=== PATIENT | female | born 1960 | race Caucasian/White ===

== ENCOUNTER 2020-01-07 12:00 | Outpatient (CLI) | payer OTHER, SELFPAY ==
--- NOTE | 2020-01-07 12:08 | ECG_ITS ---
Measurements Intervals [place] Rate: 74 P: 77 OK: 127 QRS: 84 QRSD: 79 T: 93 QT: 369 QTc: 410 Interpretive Statements SINUS RHYTHM POSSIBLE LEFT ATRIAL ENLARGEMENT BASELINE ARTIFACT- I, II, III, AVR, AVL, AVF, V1-V6 BORDERLINE ECG Electronically Signed On 01-07-2020 14:10:43 CDT by Reinier Schofield D.O.
[2020-01-07 12:19] LABS: Basophils Absolute Auto 0.04 K/mm3 (0.00-0.10); Basophils Percent Auto 0.4 % (0.0-1.0); Eosinophils Absolute Auto 0.09 K/mm3 (0.02-0.50); Hematocrit 47.6 % (35.0-49.0); Hemoglobin 16.7 g/dL (12.0-15.0); Immature Granulocyte Absolute 0.04 K/mm3 (0.00-0.00); Immature Granulocyte Percent A 0.4 % (0.0-0.0); Lymphocytes Percent Auto 28.6 % (18.0-42.0); Mean Corpuscular HGB Conc 35.1 g/dL (32.0-36.0); Mean Corpuscular Hemoglobin 33.6 pg (27.0-31.0); Mean Corpuscular Volume 95.8 fL (78.0-102.0); Mean Platelet Volume 9.2 fl (9.2-11.8); Monocytes Absolute Auto 0.47 K/mm3 (0.10-0.90); Neutrophils Absolute Auto 6.1 K/mm3 (1.7-7.2); Neutrophils Percent Auto 64.6 % (50.0-70.0); Platelet Count Result 238 K/mm3 (150-420); Red Blood Count 4.97 M/mm3 (4.20-5.40); Red Cell Distribution Width 12.8 % (11.6-14.4); White Blood Count 9.4 K/mm3 (4.8-10.8)
[2020-01-07 12:53] LABS: Creatinine Urine 83.64 mg/dL (40-278)
[2020-01-07 12:55] LABS: Microalbumin Urine Random 26.8 mg/L
[2020-01-07 12:56] LABS: Hemoglobin A1C 9.1 % (<5.7)
[2020-01-07 13:34] LABS: Alanine Aminotransferase 55 U/L (14-59); Albumin Level 3.8 g/dL (3.4-5.0); Alkaline Phosphatase 146 U/L (46-116); Anion Gap 16.8 mmol/L (7-16); Aspartate Amino Transferase 30 U/L (15-37); Bilirubin,Total 0.4 mg/dL (0.00-1.00); Blood Urea Nitrogen 14 mg/dL (7-18); Calcium 9.5 mg/dL (8.5-10.1); Carbon Dioxide 27 mmol/L (21-32); Chloride 100 mmol/L (98-108); Cholesterol 213 mg/dL (0-200); Estimated Glomerular Filt Rate > 60; Glucose 197 mg/dL (70-99); HDL Direct 37 mg/dL (40-60); LDL Cholesterol Calculated 113 mg/dL (<130); Osmolality Calculated 293 mOsm/kg (285-295); Potassium 4.8 mmol/L (3.5-5.1); Sodium 139 mmol/L (136-145); Thyroid Stimulating Hormone 3.99 uIU/mL (0.36-3.74); Total Protein 6.9 g/dL (6.4-8.2); Triglycerides 313 mg/dL (0-150); Vitamin B12 540 pg/mL (193-986)
[2020-01-09 18:26] LABS: Vitamin D 25 Hydroxy 16 ng/mL (30-100)
== END 2020-01-07 12:01 | disposition home or self-care (01) ==
LOC: CHSLAB 12:08
PROVIDERS: PCP Nurse Practitioner Family; Visit Provider Nurse Practitioner Family
DX: E78.5 Hyperlipidemia, unspecified (principal); E11.9 Type 2 diabetes mellitus without complications; R53.1 Weakness; E03.9 Hypothyroidism, unspecified; I10 Essential (primary) hypertension; T50.905A Adverse effect of unspecified drugs, medicaments and biological substances, initial encounter
CPT/HCPCS: 36415; 80053; 80061; 82043; 82306; 82607; 83036; 84443; 85025; 93005

== ENCOUNTER 2020-02-25 09:39 | Outpatient (CLI) | payer OTHER, SELFPAY ==
[2020-02-25 10:58] LABS: Alanine Aminotransferase 39 U/L (14-59); Albumin Level 3.8 g/dL (3.4-5.0); Alkaline Phosphatase 142 U/L (46-116); Anion Gap 12.8 mmol/L (7-16); Aspartate Amino Transferase 26 U/L (15-37); Bilirubin,Total 0.4 mg/dL (0.00-1.00); Blood Urea Nitrogen 19 mg/dL (7-18); Calcium 9.6 mg/dL (8.5-10.1); Carbon Dioxide 30 mmol/L (21-32); Chloride 102 mmol/L (98-108); Estimated Glomerular Filt Rate 59; Glucose 169 mg/dL (70-99); Osmolality Calculated 296 mOsm/kg (285-295); Potassium 4.8 mmol/L (3.5-5.1); Sodium 140 mmol/L (136-145); Total Protein 6.8 g/dL (6.4-8.2)
[2020-02-27 19:21] LABS: Vitamin D 25 Hydroxy 47 ng/mL (30-100)
== END 2020-02-25 09:40 | disposition home or self-care (01) ==
PROVIDERS: PCP Nurse Practitioner Family; Visit Provider Nurse Practitioner Family
DX: E03.9 Hypothyroidism, unspecified (principal); E55.9 Vitamin D deficiency, unspecified; E11.9 Type 2 diabetes mellitus without complications
CPT/HCPCS: 36415; 80053; 82306; 84443

== ENCOUNTER 2020-05-14 10:53 | Outpatient (CLI) | payer OTHER, SELFPAY ==
[2020-05-14 11:19] LABS: Hemoglobin A1C 6.3 % (<5.7)
== END 2020-05-14 10:54 | disposition home or self-care (01) ==
PROVIDERS: PCP Nurse Practitioner Family; Visit Provider Nurse Practitioner Family
DX: E11.9 Type 2 diabetes mellitus without complications (principal)
CPT/HCPCS: 36415; 83036

== ENCOUNTER 2021-02-16 13:44 | Outpatient (CLI) | payer OTHER, SELFPAY ==
[2021-02-16 14:14] LABS: Basophils Absolute Auto 0.04 K/mm3 (0.00-0.10); Basophils Percent Auto 0.4 % (0.0-1.0); Eosinophils Absolute Auto 0.13 K/mm3 (0.02-0.50); Eosinophils Percent Auto 1.4 % (1.0-6.0); Hemoglobin 14.9 g/dL (12.0-15.0); Immature Granulocyte Absolute 0.05 K/mm3 (0.00-0.00); Immature Granulocyte Percent A 0.5 % (0.0-0.0); Lymphocytes Absolute Auto 3.43 K/mm3 (1.10-4.50); Lymphocytes Percent Auto 36.6 % (18.0-42.0); Mean Corpuscular HGB Conc 35.5 g/dL (32.0-36.0); Mean Corpuscular Hemoglobin 33.3 pg (27.0-31.0); Mean Platelet Volume 9.1 fl (9.2-11.8); Monocytes Absolute Auto 0.51 K/mm3 (0.10-0.90); Monocytes Percent Auto 5.4 % (2.0-11.0); Neutrophils Absolute Auto 5.2 K/mm3 (1.7-7.2); Neutrophils Percent Auto 55.7 % (50.0-70.0); Platelet Count Result 243 K/mm3 (150-420); Red Blood Count 4.47 M/mm3 (4.20-5.40); Red Cell Distribution Width 12.6 % (11.6-14.4); White Blood Count 9.4 K/mm3 (4.8-10.8)
[2021-02-16 14:24] LABS: Hemoglobin A1C 6.7 % (<5.7)
[2021-02-16 14:42] LABS: Alanine Aminotransferase 44 U/L (14-59); Albumin Level 3.9 g/dL (3.4-5.0); Alkaline Phosphatase 136 U/L (46-116); Anion Gap 10 mmol/L (8-16); Aspartate Amino Transferase 22 U/L (15-37); Bilirubin,Total 0.5 mg/dL (0.00-1.00); Blood Urea Nitrogen 12 mg/dL (7-18); Calcium 9.4 mg/dL (8.5-10.1); Carbon Dioxide 26 mmol/L (21-32); Chloride 100 mmol/L (98-108); Cholesterol 128 mg/dL (0-200); Estimated Glomerular Filt Rate > 60; Glucose 104 mg/dL (70-99); HDL Direct 36 mg/dL (40-60); LDL Cholesterol Calculated 46 mg/dL (<130); Osmolality Calculated 281 mOsm/kg (285-295); Potassium 4.3 mmol/L (3.5-5.1); Sodium 136 mmol/L (136-145); Thyroid Stimulating Hormone 2.24 uIU/mL (0.36-3.74); Total Protein 6.7 g/dL (6.4-8.2); Triglycerides 232 mg/dL (0-150)
[2021-02-18 16:22] LABS: Vitamin D 25 Hydroxy 36 ng/mL (30-100)
== END 2021-02-16 13:45 | disposition home or self-care (01) ==
LOC: CHSLAB 13:48
PROVIDERS: PCP Nurse Practitioner Family; Visit Provider Nurse Practitioner Family
DX: E03.9 Hypothyroidism, unspecified (principal); E11.59 Type 2 diabetes mellitus with other circulatory complications; I10 Essential (primary) hypertension; E78.5 Hyperlipidemia, unspecified; E55.9 Vitamin D deficiency, unspecified
CPT/HCPCS: 36415; 80053; 80061; 82306; 83036; 84443; 85025

== ENCOUNTER 2022-05-05 14:27 | Outpatient (CLI) | payer OTHER, SELFPAY ==
[2022-05-05 14:48] LABS: Basophils Absolute Auto 0.02 K/mm3 (0.00-0.10); Basophils Percent Auto 0.3 % (0.0-1.0); Eosinophils Absolute Auto 0.09 K/mm3 (0.02-0.50); Eosinophils Percent Auto 1.4 % (1.0-6.0); Hematocrit 44.4 % (35.0-49.0); Hemoglobin 15.3 g/dL (12.0-15.0); Immature Granulocyte Absolute 0.01 K/mm3 (0.00-0.00); Immature Granulocyte Percent A 0.2 % (0.0-0.0); Lymphocytes Absolute Auto 2.36 K/mm3 (1.10-4.50); Lymphocytes Percent Auto 36.5 % (18.0-42.0); Mean Corpuscular HGB Conc 34.5 g/dL (32.0-36.0); Mean Corpuscular Volume 95.7 fL (78.0-102.0); Mean Platelet Volume 8.9 fl (9.2-11.8); Monocytes Absolute Auto 0.44 K/mm3 (0.10-0.90); Monocytes Percent Auto 6.8 % (2.0-11.0); Neutrophils Absolute Auto 3.5 K/mm3 (1.7-7.2); Neutrophils Percent Auto 54.8 % (50.0-70.0); Platelet Count Result 243 K/mm3 (150-420); Red Blood Count 4.64 M/mm3 (4.20-5.40); Red Cell Distribution Width 12.3 % (11.6-14.4); White Blood Count 6.5 K/mm3 (4.8-10.8)
[2022-05-05 15:01] LABS: Hemoglobin A1C 7.3 % (<5.7)
[2022-05-05 15:12] LABS: Alanine Aminotransferase 74 U/L (14-59); Albumin Level 3.9 g/dL (3.4-5.0); Alkaline Phosphatase 149 U/L (46-116); Anion Gap 12 mmol/L (8-16); Aspartate Amino Transferase 49 U/L (15-37); Bilirubin,Total 0.4 mg/dL (0.00-1.00); Blood Urea Nitrogen 10 mg/dL (7-18); Calcium 9.8 mg/dL (8.5-10.1); Carbon Dioxide 24 mmol/L (21-32); Chloride 98 mmol/L (98-108); Cholesterol 232 mg/dL (0-200); Estimated Glomerular Filt Rate > 60; Glucose 159 mg/dL (70-99); HDL Direct 38 mg/dL (40-60); LDL Cholesterol Calculated 132 mg/dL (<130); Osmolality Calculated 280 mOsm/kg (285-295); Potassium 4.2 mmol/L (3.5-5.1); Sodium 134 mmol/L (136-145); Thyroid Stimulating Hormone 0.82 uIU/mL (0.36-3.74); Triglycerides 309 mg/dL (0-150)
[2022-05-07 20:21] LABS: Vitamin D 25 Hydroxy 39 ng/mL (30-100)
== END 2022-05-05 14:28 | disposition home or self-care (01) ==
LOC: CHSLAB 14:33
PROVIDERS: PCP Nurse Practitioner Family; Visit Provider Nurse Practitioner Family
DX: I10 Essential (primary) hypertension (principal); E11.9 Type 2 diabetes mellitus without complications; E03.9 Hypothyroidism, unspecified; E55.9 Vitamin D deficiency, unspecified
CPT/HCPCS: 36415; 80053; 80061; 82306; 83036; 84443; 85025

== ENCOUNTER 2022-05-13 08:32 | Outpatient (CLI) | payer OTHER, SELFPAY ==
--- NOTE | ~2022-05-13 | US_ITS ---
EXAMINATION: US abdomen complete DATE: 05/13/2022 09:37 INDICATION: Abnormal levels of other serum enzymes TECHNIQUE: Multiple grayscale and Doppler ultrasound images of the abdomen were obtained. COMPARISON: None available FINDINGS: Bowel gas obscures visualization of the pancreas. The visualized portions of the pancreas a re unremarkable. The liver demonstrates increased echogenicity, heterogenous echotexture, and decreas ed through transmission. No surface nodularity. Normal hepatopetal flow in the main portal vein. The gallbladder is normal with no abnormal wall thickening, pericholecystic fluid or stones. The normal c ommon bile duct measures 4 mm. There was no sonographic Sellers sign. The visualized portions of the a med and inferior vena cava are normal. The right kidney measures 11.0 x 4.9 x 3.2 cm. The left kidney measures 11.9 x 4.3 x 5.0 cm. The kidn eys demonstrate normal parenchymal echogenicity. There is no hydronephrosis. The spleen is normal in appearance and measures 12.3 cm. IMPRESSION: 1. Diffuse hepatic steatosis. Reviewed, dictated and finalized at location B.
== END 2022-05-13 08:33 | disposition home or self-care (01) ==
LOC: CHSIMG 08:34
PROVIDERS: PCP Nurse Practitioner Family; Visit Provider Nurse Practitioner Family
DX: R74.8 Abnormal levels of other serum enzymes (principal)
CPT/HCPCS: 76700

== ENCOUNTER 2023-05-03 11:44 | Outpatient (CLI) | payer OTHER, SELFPAY ==
--- NOTE | ~2023-05-03 | XR_ITS ---
EXAMINATION: XR chest 2V DATE: 05/03/2023 12:41 INDICATION: Shortness of breath TECHNIQUE: PA and lateral views of the chest were obtained. COMPARISON: Chest radiograph dated 05/13/2014 FINDINGS: Biapical pleural-parenchymal scarring. Suggestion of a couple calcified nodules at the left costophre daily angle. No other airspace opacities, pulmonary edema, pleural effusion or pneumothorax. The cardio mediastinal silhouette is normal. Moderate thoracic spondylosis. IMPRESSION: 1. No acute cardiopulmonary disease. Reviewed, dictated and finalized at location A.
[2023-05-03 12:04] LABS: Basophils Absolute Auto 0.03 K/mm3 (0.00-0.10); Basophils Percent Auto 0.3 % (0.0-1.0); Eosinophils Absolute Auto 0.08 K/mm3 (0.02-0.50); Eosinophils Percent Auto 0.9 % (1.0-6.0); Hematocrit 42.1 % (35.0-49.0); Hemoglobin 14.7 g/dL (12.0-15.0); Immature Granulocyte Absolute 0.04 K/mm3 (0.00-0.00); Immature Granulocyte Percent A 0.5 % (0.0-0.0); Lymphocytes Absolute Auto 2.38 K/mm3 (1.10-4.50); Lymphocytes Percent Auto 27.1 % (18.0-42.0); Mean Corpuscular HGB Conc 34.9 g/dL (32.0-36.0); Mean Corpuscular Volume 94.6 fL (78.0-102.0); Mean Platelet Volume 9.2 fl (9.2-11.8); Monocytes Absolute Auto 0.46 K/mm3 (0.10-0.90); Monocytes Percent Auto 5.2 % (2.0-11.0); Neutrophils Absolute Auto 5.8 K/mm3 (1.7-7.2); Platelet Count Result 210 K/mm3 (150-420); Red Blood Count 4.45 M/mm3 (4.20-5.40); Red Cell Distribution Width 12.8 % (11.6-14.4); White Blood Count 8.8 K/mm3 (4.8-10.8)
[2023-05-03 12:28] LABS: Hemoglobin A1C 8.5 % (<5.7)
[2023-05-03 12:35] LABS: Alanine Aminotransferase 62 U/L (14-59); Albumin Level 3.7 g/dL (3.4-5.0); Alkaline Phosphatase 167 U/L (46-116); Anion Gap 10 mmol/L (8-16); Aspartate Amino Transferase 24 U/L (15-37); Bilirubin,Total 0.4 mg/dL (0.00-1.00); Blood Urea Nitrogen 11 mg/dL (7-18); Calcium 9.1 mg/dL (8.5-10.1); Carbon Dioxide 27 mmol/L (21-32); Chloride 101 mmol/L (98-108); Cholesterol 133 mg/dL (0-200); Estimated Glomerular Filt Rate > 60; Glucose 283 mg/dL (70-99); HDL Direct 45 mg/dL (40-60); LDL Cholesterol Calculated 46 mg/dL (<130); Lipase 64 U/L (16-77); NT Pro B Type Natriuretic Pept 488 pg/mL (0-125); Osmolality Calculated 295 mOsm/kg (285-295); Potassium 4.5 mmol/L (3.5-5.1); Sodium 138 mmol/L (136-145); Total Protein 6.5 g/dL (6.4-8.2); Triglycerides 210 mg/dL (0-150); Troponin I 10.8 ng/L (0.00-60.4)
[2023-05-03 12:39] LABS: Thyroid Stimulating Hormone Reflex 2.14 u/IU/mL (0.36-3.74)
== END 2023-05-03 11:45 | disposition home or self-care (01) ==
LOC: CHSLAB 11:49
PROVIDERS: PCP Family Medicine
DX: R06.00 Dyspnea, unspecified (principal); R10.9 Unspecified abdominal pain; E03.9 Hypothyroidism, unspecified; I10 Essential (primary) hypertension; E11.59 Type 2 diabetes mellitus with other circulatory complications; Z79.899 Other long term (current) drug therapy
CPT/HCPCS: 36415; 71046; 80053; 80061; 83036; 83690; 83880; 84443; 84484; 85025

== ENCOUNTER 2023-06-20 13:14 | Outpatient (CLI) | payer OTHER, SELFPAY ==
--- NOTE | 2023-06-20 13:19 | ECHO_ITS ---
Patient Info Name: Heidi Hill Age: 63 years : 1960 Gender: Female Ht: 62 in Wt: 213 lbs BSA: 2.11 m2 HR: 77 bpm BP: 150 / 135 mmHg Heart Rhythm: Sinus Rhythm Technical Quality: Good Exam Date: 06/20/2023 1:16 PM Exam Location: [facility] Patient Status: Outpatient Admit Date: 06/20/2023 Staff Ordering Physician: Bandar Garcia DO Interpreter For The Deaf: Angel Jones RDCS Attending Provider: Bandar Garcia DO Referring Physician: Radha HILLMAN; Exam Type: CA echo doppler color flow Study Info Indications - heart faluire unspecified Complete two-dimensional, color flow and Doppler transthoracic echocardiogram is performed. Summary 1. Complete two-dimensional, color flow and Doppler transthoracic echocardiogram is performed. 2. Left ventricular chamber dimension is normal. 3. Left ventricular systolic function is normal, estimated at 60-65%. 4. The left ventricular diastolic function is abnormal. 5. E/e' 12 is mildly elevated. 6. There is mild aortic valve sclerosis. 7. The mitral valve has mildly calcified annulus. 8. There is trace mitral valve regurgitation. 9. There is mild tricuspid valve regurgitation. 10. No pulmonary hypertension, estimated pulmonary arterial systolic pressure is 27 mmHg. Left Ventricle E/e' 12 is mildly elevated. Left ventricular chamber dimension is normal. Left ventricular systolic function is normal, estimated at 60-65%. The left ventricular diastolic function is abnormal. Right Ventricle Right ventricular systolic function is normal and with normal TAPSE 2.2 cm. Right ventricular chamber dimension is normal. Left Atria Left atrial chamber dimension is normal. Right Atria Right atrial chamber dimension is normal. Aortic Valve The aortic valve is trileaflet. There is mild aortic valve sclerosis. There is no aortic valve stenosis. There is no aortic valve regurgitation. Pulmonic Valve There is no pulmonic regurgitation. Mitral Valve The mitral valve has mildly calcified annulus. There is no mitral valve stenosis. There is trace mitral valve regurgitation. Tricuspid Valve There is mild tricuspid valve regurgitation. No pulmonary hypertension, estimated pulmonary arterial systolic pressure is 27 mmHg. Pericardium/Pleural There is no pericardial effusion. Inferior Vena Cava Normal inferior vena cava with >50% collapse upon inspiration consistent with normal right atrial pressure, 5 mmHg. Aorta The aortic root size at the sinus of Valsalva is normal. Left Ventricular Outflow Tract Name Value Normal LVOT 2D LVOT Diameter 1.6 cm LVOT Doppler LVOT Peak Velocity 121 cm/s LVOT Peak Gradient 6 mmHg LVOT Mean Gradient 3 mmHg LVOT VTI 35 cm LVOT VTI/AV VTI Ratio 0.9 LVOT Stroke Volume 72 ml Pulmonic Valve Name Value Normal RVOT Doppler
== END 2023-06-20 13:15 | disposition home or self-care (01) ==
LOC: CHSIMG 13:15
PROVIDERS: PCP Family Medicine; Visit Provider Family Medicine
DX: I50.9 Heart failure, unspecified (principal); R93.1 Abnormal findings on diagnostic imaging of heart and coronary circulation
CPT/HCPCS: 93306

== ENCOUNTER 2024-05-08 09:34 | Outpatient (CLI) | payer OTHER, SELFPAY ==
[2024-05-08 09:56] LABS: Basophils Absolute Auto 0.04 K/mm3 (0.00-0.10); Basophils Percent Auto 0.5 % (0.0-1.0); Eosinophils Absolute Auto 0.09 K/mm3 (0.02-0.50); Hematocrit 42.1 % (35.0-49.0); Hemoglobin 14.6 g/dL (12.0-15.0); Immature Granulocyte Absolute 0.03 K/mm3 (0.00-0.00); Immature Granulocyte Percent A 0.3 % (0.0-0.0); Lymphocytes Absolute Auto 2.24 K/mm3 (1.10-4.50); Lymphocytes Percent Auto 25.9 % (18.0-42.0); Mean Corpuscular HGB Conc 34.7 g/dL (32-36); Mean Corpuscular Volume 95.2 fL (78.0-102.0); Monocytes Absolute Auto 0.47 K/mm3 (0.10-0.90); Monocytes Percent Auto 5.4 % (2.0-11.0); Neutrophils Absolute Auto 5.79 K/mm3 (1.70-7.20); Neutrophils Percent Auto 66.9 % (50.0-70.0); Platelet Count Result 222 K/mm3 (150-420); Red Blood Count 4.42 M/mm3 (4.20-5.40); Red Cell Distribution Width 12.7 % (11.6-14.4); White Blood Count 8.7 K/mm3 (4.8-10.8)
[2024-05-08 10:10] VITALS: BP 141/96; PULSE 65; RESP 16; TEMP 35.8; O2SAT 95; BMI 79.4
[2024-05-08 10:19] LABS: Creatinine Urine 92.36 mg/dL (40-278); MALB Creatinine Ratio 64.5 mg/g (0-30); Microalbumin Urine Random 59.6 mg/L
[2024-05-08] MEDS: diphenhydrAMINE HCl INJ 50 MG/ML VIAL IV PUSH (10:30)
[2024-05-08] MEDS: SODIUM CHLORIDE 0.9% IV 1,000 ML 999 ML IVPB (10:30)
--- NOTE | 2024-05-08 10:30 | PC.NURSE ---
Patient here for IV fluids and medication due to migraine. tolerated IV start well. IV fluids running per order. Medications given IVP. Resting in chair, call light at side. Provided with cup of coffee per request.
[2024-05-08] MEDS: PROCHLORPERAZINE EDISYLATE 10 MG/2 ML VIAL IV PUSH (10:31)
[2024-05-08 10:55] LABS: Alanine Aminotransferase 76 U/L (14-59); Albumin Level 3.6 g/dL (3.4-5.0); Alkaline Phosphatase 154 U/L (46-116); Anion Gap 8 mmol/L (4-12); Aspartate Amino Transferase 31 U/L (15-37); Bilirubin,Total 0.3 mg/dL (0.00-1.00); Blood Urea Nitrogen 17 mg/dL (7-18); Calcium 9.5 mg/dL (8.5-10.1); Carbon Dioxide 28 mmol/L (21-32); Chloride 99 mmol/L (98-108); Cholesterol 115 mg/dL (0-200); Estimated CRCL calculation 103 ml/min; Estimated Glomerular Filt Rate > 60; Folic Acid 9.8 ng/mL (8.6->20); Glucose 219 mg/dL (70-99); HDL Direct 40 mg/dL (40-60); LDL Cholesterol Calculated 35 mg/dL (<130); Osmolality Calculated 288 mOsm/kg (285-295); Potassium 4.8 mmol/L (3.5-5.1); Sodium 135 mmol/L (136-145); Total Protein 6.4 g/dL (6.4-8.2); Triglycerides 201 mg/dL (0-150); Vitamin B12 383 pg/mL (193-986)
[2024-05-08 10:58] LABS: Thyroid Stimulating Hormone Reflex 1.67 u/IU/mL (0.36-3.74)
--- NOTE | 2024-05-08 11:30 | PC.NURSE ---
Patient tolerated IV fluids well. IV site removed, tip intact. Dressing applied to site. Patient denies any questions at discharge. Left floor ambulatory accompanied by .
== END 2024-05-08 11:35 | disposition home or self-care (01) ==
PROVIDERS: PCP Family Medicine; Visit Provider Family Medicine
DX: G43.909 Migraine, unspecified, not intractable, without status migrainosus (principal); E55.9 Vitamin D deficiency, unspecified; E53.8 Deficiency of other specified B group vitamins; I50.9 Heart failure, unspecified; E03.9 Hypothyroidism, unspecified; E78.5 Hyperlipidemia, unspecified; E11.59 Type 2 diabetes mellitus with other circulatory complications; I11.0 Hypertensive heart disease with heart failure
CPT/HCPCS: 36415; 80053; 80061; 82043; 82607; 82746; 84443; 85025; 96360; 96361; 96374; 96375; J0780; J1200; J7030

== ENCOUNTER 2025-04-19 14:19 | Outpatient (CLI) | payer OTHER, SELFPAY ==
[2025-04-19 14:37] LABS: Hematocrit 46.2 % (35.0-49.0); Hemoglobin 15.8 g/dL (12.0-15.0); Immature Granulocyte Percent A 0.4 % (0.0-0.0); Lymphocytes Absolute Auto 3.17 K/mm3 (1.10-4.50); Mean Corpuscular HGB Conc 34.2 g/dL (32-36); Mean Corpuscular Hemoglobin 32.2 pg (27.0-31.0); Mean Corpuscular Volume 94.3 fL (78.0-102.0); Nucleated Red Blood Cells Absolute Auto 0.00 K/mm3 (0.00-0.00); Nucleated Red Blood Cells Perc 0.0 % (0-0.0); Platelet Count Result 292 K/mm3 (150-420); Red Blood Count 4.90 M/mm3 (4.20-5.40); White Blood Count 10.8 K/mm3 (4.8-10.8)
[2025-04-19 15:06] LABS: MALB Creatinine Ratio 315.1 mg/g (0-30)
[2025-04-19 15:09] LABS: Alanine Aminotransferase 23 U/L (6-35); Albumin Level 4.8 g/dL (3.5-5.1); Alkaline Phosphatase 107 U/L (38-126); Anion Gap 11 mmol/L (4-12); Aspartate Amino Transferase 21 U/L (14-36); Bilirubin,Total 0.7 mg/dL (0.2-1.3); Blood Urea Nitrogen 18 mg/dL (7-17); Calcium 10.2 mg/dL (8.4-10.2); Carbon Dioxide 25 mmol/L (22-30); Chloride 101 mmol/L (98-107); Cholesterol 126 mg/dL (0-200); Estimated Glomerular Filt Rate > 60; Glucose 188 mg/dL (65-110); HDL Direct 42 mg/dL; Hemoglobin A1C 8.5 % (<5.7); Osmolality Calculated 290 mOsm/kg (285-295); Potassium 4.6 mmol/L (3.4-5.0); Sodium 137 mmol/L (137-145); Total Protein 7.3 g/dL (6.3-8.2); Triglycerides 261 mg/dL (<150)
[2025-04-19 15:40] LABS: Thyroid Stimulating Hormone Reflex 2.520 uIU/mL (0.465-4.68)
== END 2025-04-19 14:20 | disposition home or self-care (01) ==
LOC: CHSLAB 14:20
PROVIDERS: PCP Family Medicine; Visit Provider Family Medicine
DX: E03.9 Hypothyroidism, unspecified (principal); E11.9 Type 2 diabetes mellitus without complications
CPT/HCPCS: 36415; 80053; 80061; 82043; 83036; 84443; 85025

== ENCOUNTER 2025-06-17 08:10 | Outpatient (NON) | payer OTHER, SELFPAY ==
--- NOTE | 2025-06-17 | S_PTH ---
PATIENT: Heidi Hill LOC: [facility] U#:[id number] AGE/SX: 65/F ROOM: RE06/17/[address]: Steve James DO : 1960 BED: DIS: 06/17/2025 SPEC #: [id number] RECD: 06/18/25 08:44 STATUS: CARLO REDarin #: [id number] RITA: 06/17/25 00:[address]: Steve James DEPT: [facility] Surgical RECD BY: Gumaro Fonseca ENTERED: 06/18/25 08:46 SP TYPE: Surgical OTHR DR: Bandar Garcia DO Tissues: A - Colon Polypectomy B - Colon Polypectomy C - Colon Polypectomy D - Colon Polypectomy Procedures: Hematoxylin and Eosin Stain Gross and Microscopic Level 4
== END 2025-06-17 08:11 | disposition home or self-care (01) ==
LOC: ANHLAB 06-18 08:14
PROVIDERS: PCP Family Medicine; Visit Provider Surgery
DX: K92.1 Melena (principal)
CPT/HCPCS: 88305

== ENCOUNTER 2025-06-17 08:43 | Day surgery (SDC) | payer OTHER, SELFPAY ==
[2025-06-03 13:04] VITALS: BMI 33.8
--- NOTE | 2025-06-17 08:03 | PM.IMHP ---
H&P: HPI History of Present Illness Date/Time: 06/17/25 08:03 Chief Complaint: hematochezia Narrative: 65 yo woman presents for colonoscopy. She has been experiencing hematochezia. Denies any pain. Denies fam hx colon cancer. She has never had a colonoscopy before. Review of Systems Review of Systems: All systems reviewed & are unremarkable except as noted in HPI and below Constitutional: Constitutional: Denies chills, Denies fever(s), Denies headache(s) and Denies weight loss Eyes: Eyes: Denies change in vision ENT: Denies dizziness, Denies headache(s), Denies neck mass and Denies throat swelling Cardiovascular: Cardiovascular: Denies chest pain, Denies lightheadedness and Denies dyspnea Respiratory: Respiratory: Denies cough, Denies dyspnea and Denies wheezing Gastrointestinal: Gastrointestinal: Denies abdominal pain, Denies change in bowel habits, Denies nausea and Denies vomiting Genitourinary: Genitourinary: Denies hematuria and Denies dysuria Musculoskeletal: Musculoskeletal: Reports as per HPI Integumentary/Breasts: Skin/Breast: Reports as per HPI Neurologic: Denies dizziness and Denies headache(s) Allergic/Immunologic: Allergic/Immunologic: Denies throat swelling and Denies wheezing PMFSH Past Medical History Medical History Hypertension associated with diabetes BMI 40.0-44.9, adult Weakness Chronic back pain Migraine headache Depression Nicotine dependence, cigarettes, uncomplicated Hypothyroidism Hyperlipidemia HTN (hypertension) Surgical History Surgical History Hx of hysterectomy 1990 Social History Social History Smoking packs per day: 1 Smoking cigarettes per day: 20.0 Years smoked: 50 Smoking pack-years: 50.00 Smoking status: Current every day smoker Tobacco type: cigarettes Alcohol intake: never Substance use: current Substance use type: marijuana Other substance usage details: 4X week Do You Feel Safe in your Home?: Yes Lack of Transportation: No Lack of Food: Never True Current Housing: I Have Housing Concerned About Future Housing: No Difficulty Paying Gas/Electric Bills: No Difficulty Paying for Meds: No Currently Unemployed: No Education: High School Diploma/GED Difficulty w/ Childcare or Family Care: No Living arrangements: with family Gender identity (if verbalized by the patient): Female Spiritual care concerns: No Meds Home Medications and Allergies Home Medications ?Medication ?Instructions ?Recorded ?Confirmed ?Type doxepin 150 mg capsule 150 mg PO DAILY #90 caps 04/07/20 06/17/25 Rx venlafaxine 150 mg 225 mg PO DAILY 05/14/20 06/17/25 History capsule,extended release 24 hr (Effexor XR) albuterol sulfate 90 mcg/actuation 1 puff inhalation Q4H PRN 05/08/24 06/17/25 Rx aerosol inhaler (Ventolin HFA) shortness of breath or wheezing #8 grams levothyroxine 88 mcg tablet 88 mcg PO DAILY #90 tabs 05/29/25 06/17/25 Rx (Synthroid) dulaglutide 1.5 mg/0.5 mL 1.5 mg subcut WEEKLY 06/03/25 06/17/25 History subcutaneous pen injector (Trulicity) ergocalciferol (vitamin D2) 1,250 1,250 mcg PO WEEKLY 06/03/25 06/17/25 History mcg (50,000 unit) capsule (Vitamin D2) escitalopram oxalate 10 mg tablet 10 mg PO HS 06/03/25 06/17/25 History (Lexapro) icosapent ethyl 1 gram capsule 2 g PO BID 06/03/25 06/17/25 History losartan 100 mg tablet 100 mg feeding tube DAILY 06/03/25 06/17/25 History metformin 500 mg tablet,extended 500 mg PO BID 06/03/25 06/17/25 History release 24 hr metoprolol tartrate 50 mg tablet 50 mg PO BID 06/03/25 06/17/25 History rosuvastatin 40 mg tablet 40 mg PO DAILY 06/03/25 06/17/25 History torsemide 20 mg tablet 20 mg PO DAILY 06/03/25 06/17/25 History Allergies Allergy/AdvReac Type Severity Reaction Status Date / Time No Known Allergies Allergy Verified 06/17/25 09:48 Exam Const: General: no acute distress and alert Orientation/consciousness: patient oriented x3 HENMT: Head: normocephalic and atraumatic Ears: hearing grossly normal bilaterally Face/Nose/Sinus: Normal nares present Mouth: Yes Normal oral and palatal mucosa present Eyes: Periorbital: periorbital findings normal Sclera: sclerae normal EOM: EOMs intact bilaterally Neck: Neck: normal visual inspection, no lymphadenopathy and trachea midline Chest: Chest palpation & inspection: normal inspection of the chest Resp: Effort & Inspection: normal respiratory effort Auscultation: clear to auscultation bilaterally Cardio: Jugular venous distension: no JVD Rate: regular rate Rhythm: regular rhythm Heart sounds: S1 normal heart sound present and S2 normal heart sound present Peripheral pulses: Peripheral pulses 2+ throughout GI: Inspection: normal to inspection GI Palp: Yes Soft to palpation, No Tenderness to palpation present (GI), No Guarding due to palpation present (GI) and No Rebound tenderness present Percussion: Yes normal to percussion Auscultation: normal bowel sounds : General: Yes no CVA tenderness Back/Spine/Pelvis: Back: no CVA tenderness Neuro: General: patient oriented x3, no focal motor deficits and CN's II-XI intact bilaterally Cognition (Neuro): normal cognition Speech: normal speech Motor exam (neuro): 5/5 motor strength present throughout Extrem: General: capillary refill normal and no clubbing, cyanosis or edema Assessment and Plan Assessment and plan (1) Hematochezia: Code(s): K92.1 - Melena Status: Acute Assessment and Plan: I have recommended colonoscopy. I have discussed the procedure, risks, benefits, and alternatives. Questions were answered. Patient is agreeable to proceed.
[2025-06-17 10:00] VITALS: BMI 34.4
[2025-06-17 10:01] VITALS: BP 132/75; PULSE 71; RESP 20; TEMP 36.7; O2SAT 100
[2025-06-17] MEDS: LACTATED RINGERS 1,000 ML 150 ML IV CONT (10:19)
--- NOTE | 2025-06-17 10:35 | WPDANESEPPF ---
Anes - Initial Pre Proc Eval Procedure: Operation Date: 06/17/25 10:45 Proposed Procedures p Screening Colonoscopy - Steve James DO Date/Time: 06/17/25 10:35 Surgeon: Steve James DO Pre Op Diagnosis: melena Patient Data Age: 65 Gender: F Height: 1.57 m Weight: 85.3 kg Last Vital Signs Temp 98.1 F 06/17/25 10:01 Pulse 71 06/17/25 10:01 Resp 20 06/17/25 10:01 BP 132/75 06/17/25 10:01 Pulse Ox 100 06/17/25 10:01 O2 Del Method Room Air 06/17/25 10:01 Allergies Allergy/AdvReac Type Severity Reaction Status Date / Time No Known Allergies Allergy Verified 06/17/25 09:48 Home Medications ?Medication ?Instructions ?Recorded ?Confirmed ?Type doxepin 150 mg capsule 150 mg PO DAILY #90 caps 04/07/20 06/17/25 Rx venlafaxine 150 mg 225 mg PO DAILY 05/14/20 06/17/25 History capsule,extended release 24 hr (Effexor XR) albuterol sulfate 90 mcg/actuation 1 puff inhalation Q4H PRN 05/08/24 06/17/25 Rx aerosol inhaler (Ventolin HFA) shortness of breath or wheezing #8 grams levothyroxine 88 mcg tablet 88 mcg PO DAILY #90 tabs 05/29/25 06/17/25 Rx (Synthroid) dulaglutide 1.5 mg/0.5 mL 1.5 mg subcut WEEKLY 06/03/25 06/17/25 History subcutaneous pen injector (Trulicity) ergocalciferol (vitamin D2) 1,250 1,250 mcg PO WEEKLY 06/03/25 06/17/25 History mcg (50,000 unit) capsule (Vitamin D2) escitalopram oxalate 10 mg tablet 10 mg PO HS 06/03/25 06/17/25 History (Lexapro) icosapent ethyl 1 gram capsule 2 g PO BID 06/03/25 06/17/25 History losartan 100 mg tablet 100 mg feeding tube DAILY 06/03/25 06/17/25 History metformin 500 mg tablet,extended 500 mg PO BID 06/03/25 06/17/25 History release 24 hr metoprolol tartrate 50 mg tablet 50 mg PO BID 06/03/25 06/17/25 History rosuvastatin 40 mg tablet 40 mg PO DAILY 06/03/25 06/17/25 History torsemide 20 mg tablet 20 mg PO DAILY 06/03/25 06/17/25 History Laboratory Tests 06/17/25 10:15 POC Capillary Glucose 165 H mg/dl (65-105) Patient hx anesthesia problems: none Family hx anesthesia problems: none Results Review: All pre-operative results and documents have been reviewed as part of the pre-operative evaluation. [facility] Past Medical History Medical History Hypertension associated with diabetes BMI 40.0-44.9, adult Weakness Chronic back pain Migraine headache Depression Nicotine dependence, cigarettes, uncomplicated Hypothyroidism Hyperlipidemia HTN (hypertension) Surgical History Surgical History Hx of hysterectomy 1990 Social History Social History Smoking packs per day: 1 Smoking cigarettes per day: 20.0 Years smoked: 50 Smoking pack-years: 50.00 Smoking status: Current every day smoker Tobacco type: cigarettes Alcohol intake: never Substance use: current Substance use type: marijuana Other substance usage details: 4X week Do You Feel Safe in your Home?: Yes Lack of Transportation: No Lack of Food: Never True Current Housing: I Have Housing Concerned About Future Housing: No Difficulty Paying Gas/Electric Bills: No Difficulty Paying for Meds: No Currently Unemployed: No Education: High School Diploma/GED Difficulty w/ Childcare or Family Care: No Living arrangements: with family Gender identity (if verbalized by the patient): Female Spiritual care concerns: No Anes - Eval Final PreProcedure Day of Procedure 06/17/25 10:35 Heart: regular rate and rhythm Lungs: clear to auscultation Airway: Mallampati scale class II Neurological: alert and oriented Last oral intake: >/= 8 hours ASA classification: III Anesthetic plan: proceed Anesthesia type and monitoring: monitored anesthesia care Results Review: All pre-operative results and documents have been reviewed as part of the pre-operative evaluation. Informed Consent: The patient's anesthetic plan and its attendant risks and benefits were discussed with the patient/family/POA. Questions were solicited and answers provided to the satisfaction of the patient/family/POA.
--- NOTE | 2025-06-17 11:45 | WPDANESPN ---
Anes - Prog Note Post-Op Date/Time: 06/17/25 11:45 Vital Signs: Last Vital Signs Temp 98.1 F 06/17/25 10:01 Pulse 71 06/17/25 10:01 Resp 20 06/17/25 10:01 BP 132/75 06/17/25 10:01 Pulse Ox 100 06/17/25 10:01 O2 Del Method Room Air 06/17/25 10:01 Pain Score (VAS): no I/O: Intake & Output 06/16/25 06/17/25 06/17/25 23:59 07:59 15:59 Intake Total 0 Balance 0 06/17/25 10:15 POC Capillary Glucose 165 H Patient Feedback: Patient satisfied with anesthetic care.
[2025-06-17 11:46] VITALS: BP 116/74; PULSE 79; RESP 16; O2SAT 97
[2025-06-17 11:56] VITALS: BP 122/55; PULSE 71; RESP 18; O2SAT 97
[2025-06-17 12:06] VITALS: BP 128/100; PULSE 73; RESP 18; O2SAT 98
== END 2025-06-17 12:19 | disposition home or self-care (01) ==
PROVIDERS: PCP Family Medicine; Visit Provider Surgery
PROC: 0DJD8ZZ Inspection of Lower Intestinal Tract, Via Natural or Artificial Opening Endoscopic (ICD-10-PCS; CPT 45378; principal; 2025-06-17 10:45)
DX: K92.1 Melena (principal); D12.3 Benign neoplasm of transverse colon; D12.4 Benign neoplasm of descending colon; D12.5 Benign neoplasm of sigmoid colon; D12.8 Benign neoplasm of rectum; K57.30 Diverticulosis of large intestine without perforation or abscess without bleeding; K64.8 Other hemorrhoids; K63.5 Polyp of colon
CPT/HCPCS: 45385; 45381